=== PATIENT | female | born 1975 | race Caucasian/White ===

== ENCOUNTER 2018-01-23 12:13 | Emergency (ER) | payer OTHER ==
[~2018-01-23] VITALS: Ht 154.9 cm; Wt 96.2 kg
[~2018-01-23 12:13] MED LIST: ALPRAZOLAM1 M2 PO; DEXTROAMP-AMPHE10 MG PO; FLAGYL500 MG PO; HYDROCODONE/ACE1 TA1 PO; HYDROXYZINE50 MG PO; PREDNICOT20 MG PO; ZOLPIDEM TARTRAT5 M1 PO
--- NOTE | 2018-01-23 12:25 | ED GENERAL ADULT ---
History of Present Illness General Chief Complaint: Low Back Pain/Injury Stated Complaint: LOWER BACK PAIN Source: patient Exam Limitations: no limitations Vital Signs & Intake/Output Vital Signs & Intake/Output Vital Signs Date Time Temp Pulse Resp B/P B/P Pulse O2 O2 Flow FiO2 Mean Ox Delivery Rate 01/23 1417 98.7 54 18 130/60 98 Room Air 01/23 1222 98.1 76 18 94/59 99 Room Air Allergies Coded Allergies: NO KNOWN ALLERGIES (NONE 01/23/18) Reconcile Medications Cephalexin (Keflex) 500 MG CAPSULE 1 CAP PO BID UTI Cyclobenzaprine HCl 10 MG TABLET 1 TAB PO Q12 PAIN Meloxicam (Mobic) 15 MG TABLET 1 TAB PO DAILY PAIN Triage Nurses Notes Reviewed? yes Onset: Abrupt Duration: hour(s): Timing: recent history HPI: 01/23/18 12:18 PM 42-year-old female presents to the emergency department for severe right sided flank pain. The patient states she was in her usual state of health until earlier today when she developed a sudden onset of right-sided flank pain radiating to the right lower quadrant. She admits to nausea but no vomiting. No fever. She says she had a planned at [facility] but had to be transported to the emergency department due to complications; this was several months ago. She denies any allergies. She says she hasn't felt under percent since her . Past History Travel History Traveled to [place] past 21 day No Medical History Any Pertinent Medical History? see below for history Neurological: NONE EENT: NONE Cardiovascular: NONE Respiratory: NONE Gastrointestinal: NONE Hepatic: NONE Renal: NONE Musculoskeletal: NONE Psychiatric: NONE Endocrine: NONE Blood Disorders: NONE Cancer(s): NONE COMMUNITY HEALTH ADVISOR/Reproductive: NONE Surgical History Surgical History: TOP Psychosocial History What is your primary language Jordanian Family History Hx Contributory? No Review of Systems Review of Systems Constitutional: Denies: fever. EENTM: Reports: no symptoms. Respiratory: Reports: no symptoms. Cardiovascular: Reports: no symptoms. GI: Reports: see HPI. Genitourinary: Reports: no symptoms. Musculoskeletal: Reports: no symptoms. Skin: Reports: no symptoms. Neurological/Psychological: Reports: no symptoms. Hematologic/Endocrine: Reports: no symptoms. Immunologic/Allergic: Reports: no symptoms. Physical Exam Physical Exam General Appearance: well developed/nourished, alert, awake, anxious, moderate distress Head: atraumatic, normal appearance Eyes: Bilateral: normal appearance, PERRL, EOMI. Ears, Nose, Throat: normal pharynx, normal ENT inspection, hearing grossly normal Neck: normal inspection, supple, full range of motion Respiratory: normal breath sounds, chest non-tender, no respiratory distress Cardiovascular: regular rate/rhythm Peripheral Pulses: 4+ radial (R), 4+ radial (L) Gastrointestinal: soft, tenderness Back: normal range of motion Extremities: no edema Neurologic/Psych: no motor/sensory deficits, awake, alert, oriented x 3 Skin: intact, normal color, warm/dry Core Measures ACS in differential dx? No CVA/TIA Diagnosis: No Sepsis Present: No Sepsis Focused Exam Completed? No Progress Differential Diagnoses I considered the following diagnoses in my evaluation of the patient: [Renal colic, diverticulitis, , appendicitis] Plan of Care: Orders Procedure Date/time Status URINALYSIS 01/23 122 Complete HUMAN BETA HCG SCREEN 01/23 122 Complete COMPREHENSIVE METABOLIC PANEL 01/23 1226 Complete CBC WITHOUT DIFFERENTIAL 01/23 1226 Complete Laboratory Tests 01/23/18 1231: Anion Gap 7, Estimated GFR > 60, BUN/Creatinine Ratio 15.0, Glucose 98, Calcium 9.0, Total Bilirubin 0.4, AST 15, ALT 32, Alkaline Phosphatase 65, Total Protein 6.9, Albumin 4.0, Globulin 2.9, Albumin/Globulin Ratio 1.4, Total Beta HCG NEGATIVE, CBC w Diff NO MAN DIFF REQ, RBC 4.80, MCV 86.8, MCH 28.8, MCHC 33.2, RDW 14.9 H, MPV 9.3, Gran % 67.2, Lymphocytes % 22.3, Monocytes % 5.0, Eosinophils % 4.6, Basophils % 0.9, Absolute Granulocytes 6.5, Absolute Lymphocytes 2.1, Absolute Monocytes 0.5, Absolute Eosinophils 0.4, Absolute Basophils 0.1 01/23/18 1230: Urine Color YEL, Urine Clarity HAZY H, Urine pH 6.0, Ur Specific [place] >= 1.030, Urine Protein NEG, Urine Ketones NEG, Urine Nitrite NEG, Urine Bilirubin NEG, Urine Urobilinogen 1.0, Ur Leukocyte Esterase TRACE H, Ur Microscopic SEDIMENT EXAMINED, Urine RBC 3-5, Urine WBC 5-10 H, Ur Epithelial Cells MANY H , Urine Bacteria MOD H, Urine Hemoglobin LARGE H, Urine Glucose NEG She was treated with IV fluids and Toradol. CT scan of the abdomen and pelvis was ordered, labs have been sent. Initial ED EKG: none Departure Departure Disposition: STILL A PATIENT Condition: Stable Clinical Impression Primary Impression: Flank pain Referrals: Patient Has No Primary Care Dr (PCP/Family) Departure Forms: Customer Survey General Discharge Information Prescriptions: Current Visit Scripts Cephalexin (Keflex) 1 CAP PO BID #20 CAP Meloxicam (Mobic) 1 TAB PO DAILY #15 TAB Cyclobenzaprine HCl 1 TAB PO Q12 #20 TAB Comments 01/23/[address] scan negative for intra-abdominal pathology. Patient does have scant pyuria. She was treated with antibiotics. She will follow-up with a [facility] faculty practice physician this week. Reevaluation she localizes the pain to the right lower lumbar area. Critical Care Note Critical Care Note Critical Care Time: non-applicable
[2018-01-23 12:47] LABS: ABSOLUTE BASOPHIL COUNT 0.1 /CUMM (0.0-0.2); ABSOLUTE EOSINOPHIL COUNT 0.4 /CUMM (0.0-0.7); ABSOLUTE GRANULOCYTE CT 6.5 /CUMM (1.4-6.5); ABSOLUTE LYMPH COUNT 2.1 /CUMM (1.2-3.4); ABSOLUTE MONOCYTE COUNT 0.5 /CUMM (0.10-0.60); BASOPHIL % 0.9 % (0.0-2.0); EOSINOPHIL % 4.6 % (0-5); GRANULOCYTE % 67.2 % (42.2-75.2); HEMATOCRIT 41.6 % (37-47); MEAN CORPUSCULAR HGB 28.8 PG (27.0-31.0); MEAN CORPUSCULAR HGB CONC 33.2 G/DL (33.0-37.0); MEAN CORPUSCULAR VOLUME 86.8 FL (81.0-99.0); MEAN PLATELET VOLUME 9.3 FL (7.4-10.4); PLATELET COUNT 236 /CUMM (130-400); RBC DISTRIBUTION WIDTH 14.9 % (11.5-14.5); WHITE BLOOD CELL COUNT 9.6 /CUMM (4.8-10.8)
--- NOTE | 2018-01-23 14:03 | CT SCAN REPORT ---
EXAMINATION: CT ABDOMEN AND PELVIS WITH CONTRAST CLINICAL INFORMATION: Right flank. COMPARISON: None. TECHNIQUE: Multidetector volumetric imaging was performed from the superior aspect of the liver through the pubic symphysis following administration of 95 ml of Optiray 320 Sagittal and coronal reformatted images were obtained on the technologist workstation. DLP: 912 mGy-cm FINDINGS: LUNG BASES: The visualized lung bases are unremarkable. LIVER, GALLBLADDER, AND BILIARY TREE: The liver is normal in size, shape, and attenuation. No focal hepatic lesion or biliary ductal dilatation is present. Gallbladder is contracted which makes evaluation for subtle gallbladder changes difficult. No pericholecystic inflammatory change present PANCREAS: Unremarkable. SPLEEN: Unremarkable. ADRENAL GLANDS: Unremarkable. KIDNEYS AND URETERS: The kidneys are normal in size, shape, and attenuation. No hydronephrosis, hydroureter, or calculi seen. No perinephric stranding. BLADDER: Unremarkable. GASTROINTESTINAL TRACT: Colon is mostly decompressed. I do not appreciate any focal colonic wall thickening or pericolonic inflammatory changes. Specific attention was given to the right lower quadrant. Normal-appearing appendix is seen with no periappendiceal inflammatory changes or fluid. Visualized small bowel is unremarkable. No obstructive changes identified. ABDOMINAL WALL: No significant hernia is appreciated. LYMPHOVASCULAR STRUCTURES: No lymphadenopathy. The aorta is unremarkable. PELVIC VISCERA: Unremarkable. OSSEOUS STRUCTURES: Unremarkable. IMPRESSION: No acute intra-abdominal process seen. Specifically normal appearance to the appendix in the right lower quadrant. No hydronephrosis or obstructive changes to the kidneys.
[2018-01-23 14:17] VITALS: BP 130/60
[2018-01-23] MEDS ORDERED: MOBIC15 M1 PO (14:48)
[2018-01-23] MEDS ORDERED: CYCLOBENZAPRINE10 M1 PO (14:48)
[2018-01-23] MEDS ORDERED: KEFLEX500 M1 PO (14:48)
== END 2018-01-23 14:56 | disposition still patient (30) ==
LOC: ERH 12:13
PROVIDERS: Emergency Medicine
DX: R10.9 Unspecified abdominal pain (principal); R11.0 Nausea
CPT/HCPCS: 74177; 81001; 96361; 96374; J1885